=== PATIENT | male | born 1945 | race Caucasian/White ===

== ENCOUNTER → 2018-01-18 | Outpatient (CLI) | payer OTHER, MEDICARE ==
[~2018-01-18] VITALS: Ht 175.3 cm; Wt 80.7 kg
[~2018-01-18] MED LIST: ASA81BEC PO; ASPIR 8181 MG PO; ATORVASTATIN CA40 MG PO; AZOPT OPHTH1 %/10 M1 INTRAOCULR; AZOPT OPHTH1 %/10 M1 OPHTHALMIC; CARDIZEM CD120 MG PO; COUMADIN 5 MG TA5 M1 PO; DEXILANT60 MG PO; DIOVAN 80 MG TA80 M1 PO; ELIQUIS5 MG PO; FERREX 150 FORT1 CAP PO; FIBERCON625 M1 PO; FLOMAX0.4 MG PO; HYDROCODONE-AP1 EAC6 PO; TRINATE TABLET1 TAB PO; TYLENOL325 MG PO
--- NOTE | ~2018-01-18 | P ---
[facility] [place] [address] PROCEDURE REPORT Name: SHAWN PAK II Room #: REG [facility]#: [id number] Admission: 01/18/18 Attend Phys: London Pittman MD Discharge: Date of : 49 Report #: [id number] THIS REPORT FOR: //name// CC: Jonah Pittman PREOPERATIVE DIAGNOSIS: Atrial flutter. POSTOPERATIVE DIAGNOSIS: Atrial flutter. PROCEDURES PERFORMED: 1. SVT ablation, CPT code 57205. 2. EP with left atrial pacing and recording, CPT code 71141. 3. Program stimulation and pacing after IV, CPT code 88840. 4. 3D mapping, CPT code 35814, 5. CPT code mapping of tachycardia, CPT code 34490. HISTORY: The patient is a 73-year-old with history of atrial flutter here for atrial flutter ablation. ANESTHESIA: The patient underwent MAC anesthesia with no anesthesia related complications. DESCRIPTION OF PROCEDURE: The patient underwent informed consent. We discussed the details of the procedure including the risks, which include but not limited to bleeding, vascular damage, cardiac perforation as well as stroke or SC. He understood these risks and is willing to proceed. The patient was brought to the EP laboratory in a fasting and unsedated state and prepped and draped in a sterile fashion. I obtained access to the right femoral vein x 3, placing an 8-Latvian and two 7-Latvian short sheaths using the modified Seldinger technique. Next, under fluoroscopy, I placed a decapolar catheter easily in the coronary sinus and a live wire halo catheter into the right atrium. At baseline, the patient was in atrial flutter with a ventricular rate of 480 milliseconds and atrial cycle length of 240 milliseconds with a proximal to distal activation along the coronary sinus and a counter clockwise activation along the halo catheter. The QRS duration was 75 milliseconds and the QT interval was 325 milliseconds. Next, I performed entrainment maneuvers from the CS catheter and halo catheter. The post-pacing interval minus the tachycardia cycle length was equal to 20 milliseconds while pacing from halo 1, 2 consistent with cavotricuspid isthmus dependent flutter. Next, I exchanged my 8-Latvian short sheath for a ramp sheath and a Biosense Rutherford 8 mm ablation catheter. A detailed 3D geometry of the right atrium was created and activation map of the flutter was also created. Next, ablation was performed at 70 gaffney and 60 degrees and after a continuous drag lesion, there was acute termination of atrial flutter at the posterior aspect of the isthmus. I then checked conduction and there was evidence of bidirectional block with a transisthmus conduction time of [address] [address] PROCEDURE REPORT Name: SHAWN PAK II Room #: REG [facility]#: [id number] Admission: 01/18/18 Attend Phys: London Pittman MD Discharge: Date of : 49 Report #: [id number] POST-ABLATION TESTING: Post-ablation, the patient was in sinus rhythm and AV block was noted at 360 milliseconds. Atrial ERP was noted at 220 milliseconds with [address] cycle length. Isoproterenol infusion was performed at 1 mcg per minute and AV block was noted at 320 milliseconds. Atrial ERP was noted at 220 milliseconds at a [address] cycle length. On isoproterenol, the patient did have some PVCs that were right bundle branch block, positive concordance and positive in leads II, III and aVF. These resolved with the discontinuation of isoproterenol. Post-ablation, the patient was in sinus rhythm. There was persistence of bidirectional block. As such, the procedure was concluded and there were no complications. Hemostasis was obtained and the patient awoke neurologically and hemodynamically intact. CONCLUSIONS: 1. Successful ablation of atrial flutter with evidence of bidirectional block. 2. Normal SA juwan function. 3. Normal AV juwan function. 4. Normal His-Purkinje function. 5. No other inducible arrhythmias other than PVCs. <ELECTRONICALLY SIGNED> By: London Pittamn MD 02/09/18 1141 1138 1250 London Pittman MD /nt
[2018-01-18 07:17] VITALS: BP 152/111
[2018-01-18 07:20] LABS: ABSOLUTE NEUTROPHILS 5.7 thou/uL (1.4-8.2); BASOPHILS 0.8 % (0.0-2.0); EOSINOPHILS 4.5 % (0.0-3.0); HEMATOCRIT 47.9 % (42.0-52.0); HEMOGLOBIN 16.4 gm/dL (14.0-18.0); LYMPHOCYTES 22.3 % (24.0-44.0); MCH 32.1 pg (26.0-34.0); MCHC 34.2 g/dL (28.0-37.0); MCV 93.6 fL (80.0-100.0); MONOCYTES 8.7 % (1.0-8.0); PLATELET COUNT 200 thou/uL (150-400); POLYS 63.7 % (36.0-66.0); RBC 5.12 mil/uL (4.50-6.00); RDW 13.3 % (10.5-14.5); WBC 8.9 thou/uL (4.0-11.0)
[2018-01-18 07:29] LABS: CALCIUM 9.4 mg/dL (8.5-10.1); CREATININE 1.2 mg/dL (0.7-1.3); POTASSIUM 4.2 mmol/L (3.5-5.1)
[2018-01-18 07:35] LABS: ALBUMIN 3.5 g/dL (3.4-5.0); TOTAL BILIRUBIN 0.4 mg/dL (<0.1-1.0); TOTAL PROTEIN 7.3 g/dL (6.4-8.2)
[2018-01-18 07:38] LABS: APTT 26.8 Seconds (24.5-32.8); PROTIME 10.1 Seconds (9.3-11.4)
== END | disposition home or self-care (01) ==
LOC: CATH 06:36
PROVIDERS: Internal Medicine Infectious Disease
DX: I48.92 Unspecified atrial flutter (principal); I10 Essential (primary) hypertension; K21.9 Gastro-esophageal reflux disease without esophagitis; Z98.41 Cataract extraction status, right eye; Z98.42 Cataract extraction status, left eye; E78.00 Pure hypercholesterolemia, unspecified; Z87.891 Personal history of nicotine dependence; Z95.2 Presence of prosthetic heart valve; Z79.01 Long term (current) use of anticoagulants; Z82.49 Family history of ischemic heart disease and other diseases of the circulatory system; Z79.82 Long term (current) use of aspirin; Z79.899 Other long term (current) drug therapy
CPT/HCPCS: 62110; 62900; 70005

== ENCOUNTER → 2020-01-18 | Outpatient (CLI) | payer OTHER, MEDICARE | LOC: SJCVCIMAG 08:39 | DX: I21.29 ST elevation (STEMI) myocardial infarction involving other sites (principal); I08.2 Rheumatic disorders of both aortic and tricuspid valves; I11.9 Hypertensive heart disease without heart failure; R94.31 Abnormal electrocardiogram [ECG] [EKG]; I48.92 Unspecified atrial flutter; I25.10 Atherosclerotic heart disease of native coronary artery without angina pectoris; K21.9 Gastro-esophageal reflux disease without esophagitis; Z87.891 Personal history of nicotine dependence; Z82.49 Family history of ischemic heart disease and other diseases of the circulatory system; Z95.2 Presence of prosthetic heart valve; Z79.899 Other long term (current) drug therapy ==

== ENCOUNTER → 2020-02-13 | Outpatient (CLI) | payer OTHER, MEDICARE | LOC: SJCVCIMAG 01-16 11:11 | DX: I73.9 Peripheral vascular disease, unspecified (principal) ==

== ENCOUNTER → 2020-07-18 | Outpatient (CLI) | payer OTHER, MEDICARE | LOC: SJCVC 09:49 | PROVIDERS: ATTEND Internal Medicine Cardiovascular Disease | DX: R94.31 Abnormal electrocardiogram [ECG] [EKG] (principal); I25.10 Atherosclerotic heart disease of native coronary artery without angina pectoris; I48.92 Unspecified atrial flutter; I10 Essential (primary) hypertension; I25.2 Old myocardial infarction; Z95.2 Presence of prosthetic heart valve ==

== ENCOUNTER → 2020-09-15 | Outpatient (CLI) | payer OTHER, MEDICARE | LOC: SJCVC 14:05 | PROVIDERS: ATTEND Internal Medicine Cardiovascular Disease | DX: R94.31 Abnormal electrocardiogram [ECG] [EKG] (principal); I49.3 Ventricular premature depolarization; I10 Essential (primary) hypertension; I48.92 Unspecified atrial flutter; I25.10 Atherosclerotic heart disease of native coronary artery without angina pectoris; Z95.2 Presence of prosthetic heart valve ==

== ENCOUNTER → 2021-01-16 | Outpatient (CLI) | payer OTHER, MEDICARE | LOC: SJCVCIMAG 08:00 | PROVIDERS: ATTEND Internal Medicine Cardiovascular Disease | DX: I44.7 Left bundle-branch block, unspecified (principal); R00.1 Bradycardia, unspecified; I10 Essential (primary) hypertension; I48.92 Unspecified atrial flutter; I25.10 Atherosclerotic heart disease of native coronary artery without angina pectoris; I49.3 Ventricular premature depolarization; E78.5 Hyperlipidemia, unspecified; K21.9 Gastro-esophageal reflux disease without esophagitis; I35.0 Nonrheumatic aortic (valve) stenosis; R60.9 Edema, unspecified; R06.00 Dyspnea, unspecified; R51.9 Headache, unspecified; Z87.891 Personal history of nicotine dependence; Z79.899 Other long term (current) drug therapy; Z95.2 Presence of prosthetic heart valve ==

== ENCOUNTER → 2021-07-10 | Outpatient (CLI) | payer OTHER, MEDICARE | LOC: SJCVC 10:21 | PROVIDERS: ATTEND Internal Medicine Cardiovascular Disease | DX: R94.31 Abnormal electrocardiogram [ECG] [EKG] (principal); I44.7 Left bundle-branch block, unspecified; I49.3 Ventricular premature depolarization; I10 Essential (primary) hypertension; I48.92 Unspecified atrial flutter; I25.10 Atherosclerotic heart disease of native coronary artery without angina pectoris; K21.9 Gastro-esophageal reflux disease without esophagitis; E78.5 Hyperlipidemia, unspecified; I73.9 Peripheral vascular disease, unspecified; Z95.2 Presence of prosthetic heart valve; Z79.899 Other long term (current) drug therapy; Z87.891 Personal history of nicotine dependence ==